=== PATIENT | male | born 1970 | race Caucasian/White ===

== ENCOUNTER 2018-06-02 14:00 | Inpatient (IN) | payer OTHER ==
[2018-06-02 14:40] VITALS: BMI 25.2
--- NOTE | 2018-06-02 17:57 | HP ---
CIWA Score - CIWA Score Nausea/Vomitin Muscle Tremors: 2 Anxiety: 3 Agitation: 2 Paroxysmal Sweats: 2 Orientation: 1-Uncertain about Date (no distress) Tacttile Disturbances: 2-Mild Itch/Numbness/Burn (both hands) Auditory Disturbances: 1-Very Mild Visual Disturbances: 0-None Headache: 0-None Present CIWA-Ar Total Score: 16 Admission ROS BHS - HPI Chief Complaint: " I need help" alcohol withdrawal symptoms Allergies/Adverse Reactions: Allergies Allergy/AdvReac Type Severity Reaction Status Date / Time shellfish derived Allergy Verified 06/02/18 17:28 tramadol Allergy Verified 06/02/18 17:28 History of Present Illness: 47 yo male with hx of alcohol dependence is here seeking detox for the first time. Reports seen at [facility] ED yesterday for asthma attack on prednisone. PMHX: sciatica, asthma, HTN, HDL. Denies psychiatric psychiatric diagnosis, reports increase drinking due to feeling depressed after the of his mother four years ago. Denies suicidal / homicidal ideation. Denies any legal troubles at this time. Denies any seizures or blackouts. Reports no significant period of sobriety. Exam Limitations: No Limitations - Ebola screening Have you traveled outside of the country in the last 21 days: No (N) Have you had contact with anyone from an Ebola affected area: No Have you been sick,other than usual withdrawal symptoms: No Do you have a fever: No - Review of Systems Constitutional: Changes in sleep, Other (anxious, weight gain +30 lbs) EENT: reports: Other (uses glasses) Respiratory: reports: No Symptoms reported Cardiac: reports: Palpitations GI: reports: Nausea, Vomiting, Indigestion : reports: No Symptoms Reported Musculoskeletal: reports: Back Pain (lower back pain with sciatica) Integumentary: reports: No Symptoms Reported Neuro: reports: Numbness (both hands), Weakness Endocrine: reports: Increased Thirst Hematology: reports: No Symptoms Reported Psychiatric: reports: Orientated x3, Anxious, Depressed (increased drinking, mother passed four years ago) Other Systems: Reviewed and Negative Patient History - Patient Medical History Hx Anemia: No Hx Asthma: Yes Hx Chronic Obstructive Pulmonary Disease (COPD): No Hx Cancer: No Hx Cardiac Disorders: No Hx Congestive Heart Failure: No Hx Hypertension: Yes Hx Hypercholesterolemia: Yes Hx Pacemaker: No HX Cerebrovascular Accident: No Hx Seizures: No Hx Dementia: No Hx Diabetes: No Hx Gastrointestinal Disorders: No Hx Liver Disease: No Hx Genitourinary Disorders: No Hx Sexually Transmitted Disorders: No Hx Renal Disease (ESRD): No Hx Thyroid Disease: No Hx Human Immunodeficiency Virus (HIV): No (last tested one month with NEG results) Hx Hepatitis C: No Hx Depression: Yes Hx Suicide Attempt: No Hx Bipolar Disorder: No Hx Schizophrenia: No - Patient Surgical History Past Surgical History: Yes Hx Orthopedic Surgery: Yes (L HIP SURGERY 2016) Anesthesia Reaction: No - PPD History Previous Implant?: No (tx with INH six years ago ) Documented Results: Positive w/o proof PPD to be Administered?: No - Smoking Cessation Smoking history: Former smoker Have you smoked in the past 12 months: No Hx Chewing Tobacco Use: No Initiated information on smoking cessation: No - Substance & Tx. History Hx Alcohol Use: Yes Hx Substance Use: Yes Substance Use Type: Alcohol Hx Substance Use Treatment: No - Substances Abused Alcohol Route: Oral Frequency: Daily Amount used: 1 PINT RUM Age of first use: 47 Date of Last Use: 06/02/18 Family Disease History - Family Disease History Family Disease History: CA: Father () Admission Physical Exam BHS - Vital Signs Vital Signs: Vital Signs - 24 hr 06/02/18 14:38 Temperature 96.2 F L Pulse Rate 82 Respiratory 18 Rate Blood Pressure 156/106 H - Physical General Appearance: Yes: Nourished, Appropriately Dressed, Disheveled, Mild Distress, Sweating, Anxious HEENTM: Yes: EOMI, Hearing grossly Normal, Normal ENT Inspection, Normocephalic , Normal Voice, [place], Pharynx Normal, Tm's normal, Other (dry mucous membranes) Respiratory: Yes: Chest Non-Tender, Lungs Clear, Normal Breath Sounds, No Respiratory Distress, No Accessory Muscle Use Neck: Yes: Within Normal Limits Breast: Yes: Breast Exam Deferred Cardiology: Yes: Regular Rhythm, Regular Rate Abdominal: Yes: Normal Bowel Sounds, Non Tender, Soft, Protuberent Genitourinary: Yes: Within Normal Limits Back: Yes: Normal Inspection Musculoskeletal: Yes: full range of Motion, Gait Steady, Pelvis Stable, Back pain Extremities: Yes: Normal Capillary Refill, Normal Inspection, Normal Range of Motion, Non-Tender Neurological: Yes: representative II-XII NML intact, Fully Oriented, Alert, Motor Strength 5/5, Depressed Affect Integumentary: Yes: Normal Color, Warm, Clammy Lymphatic: Yes: Within Normal Limits - Diagnostic (1) Asthma Current Visit: Yes Status: Chronic Qualifiers: Asthma severity: moderate Asthma persistence: unspecified Asthma complication type: with acute exacerbation Qualified Code(s): J45.901 - Unspecified asthma with (acute) exacerbation (2) Alcohol dependence with withdrawal Current Visit: Yes Status: Acute Qualifiers: Complication of substance-induced condition: uncomplicated Qualified Code(s ): F10.230 - Alcohol dependence with withdrawal, uncomplicated (3) Hypertension Current Visit: Yes Status: Chronic Qualifiers: Hypertension type: essential hypertension Qualified Code(s): I10 - Essential (primary) hypertension (4) Chronic back pain Current Visit: Yes Status: Chronic Qualifiers: Back pain location: low back pain Back pain laterality: bilateral Sciatica presence: with sciatica Cleared for Admission [facility] - Detox or Rehab [facility] Level of Care: Medically Managed Detox Regimen/Protocol: Librium [facility] Breath Alcohol Content Breath Alcohol Content: 0.125 Urine Drug Screen - Results Drug Screen Negative: Yes
[2018-06-02] MEDS ORDERED: ALBUTEROL SO4 0.083% IH SOL 2.5 MG/3 ML VIAL.NEB. NEB PRN (18:08)
[2018-06-02] MEDS ORDERED: ALBUTEROL SO4 8 GM HFA INHALER IH PRN (18:11)
[2018-06-02] MEDS ORDERED: guaiFENesin/D-METHORPHAN HB 10 ML UNIT-DOSE CUPS PO PRN (20:19)
[2018-06-02] MEDS ORDERED: MAGNESIUM CITRATE 300 ML BOTTLE PO PRN (20:19)
[2018-06-02] MEDS ORDERED: MAG HYDROX/AL HYDROX/SIMETH 30 ML UNIT-DOSE CUP PO PRN (20:19)
[2018-06-02] MEDS ORDERED: P-EPHED 60MG/TRIPROLIDI 2.5MG TABLET PO PRN (20:19)
[2018-06-02] MEDS ORDERED: MAGNESIUM HYDROX 2400MG/30ML ORAL SUSPENSION 30 ML CUP PO PRN (20:19)
[2018-06-02] MEDS ORDERED: MENTHOL/PHENOL 1 EACH UD MM PRN (20:19)
[2018-06-02] MEDS ORDERED: ACETAMINOPHEN 325 MG TABLET (FP) PO PRN (20:19)
[2018-06-02] MEDS ORDERED: chlordiazePOXIDE HCL 25 MG CAPSULE PO ONE (20:19)
[2018-06-02] MEDS ORDERED: IBUPROFEN 400 MG TABLET (FP) PO PRN (20:19)
[2018-06-02] MEDS: chlordiazePOXIDE HCL 25 MG CAPSULE PO SCH (22:13)
[2018-06-02] MEDS: predniSONE 20 MG TABLET (UD) PO SCH (22:13)
[2018-06-02] MEDS: THIAMINE HCL 100 MG TABLET (FP) PO SCH (22:14)
[2018-06-02] MEDS: BUDESONIDE/FORMETEROL FUMARATE 160/4.5 mcg INHALER IH SCH (22:15)
[2018-06-03] MEDS: MELATONIN 5 MG TABLETS PO PRN ×2 (01:31→23:19)
[2018-06-03] MEDS: chlordiazePOXIDE HCL 25 MG CAPSULE PO SCH ×4 (05:05→22:22)
[2018-06-03 10:07] LABS: HEMATOCRIT 42.4 % (35.4-49); HEMOGLOBIN 14.2 GM/dL (11.7-16.9); MCH 33.7 pg (25.7-33.7); MCHC 33.6 g/dl (32.0-35.9); MEAN CELL VOLUME 100.4 fl (80-96); MEAN PLT VOLUME 9.3 fl (7.5-11.1); PLATELET COUNT 134 K/MM3 (134-434); RBC 4.22 M/mm3 (4.00-5.60); RDW 14.2 % (11.9-15.9)
--- NOTE | 2018-06-03 10:14 | EKG ---
Test Reason : Blood Pressure : / mmHG Vent. Rate : 072 BPM Atrial Rate : 072 BPM P-R Int : 160 ms QRS Dur : 094 ms QT Int : 394 ms P-R-T Axes : 071 013 052 degrees QTc Int : 431 ms NORMAL SINUS RHYTHM NORMAL ECG NO PREVIOUS ECGS AVAILABLE Confirmed by GWEN BARR MD ([id number]) on 06/03/2018 10:14:09 AM Referred By: Confirmed By:GWEN BARR MD
[2018-06-03] MEDS: PRENATAL VITAMINS W/ FOLIC ACID TABLET (FP) PO SCH (10:15)
[2018-06-03] MEDS: ATENOLOL 50 MG TABLET (FP) PO SCH (10:15)
[2018-06-03] MEDS: predniSONE 20 MG TABLET (UD) PO SCH (10:15)
[2018-06-03] MEDS: BUDESONIDE/FORMETEROL FUMARATE 160/4.5 mcg INHALER IH SCH ×2 (10:17→22:39)
[2018-06-03 10:35] LABS: ALBUMIN 4.2 g/dl (3.4-5.0); ALK PHOS 90 U/L (45-117); ANION GAP 11 MMOL/L (8-16); BILIRUBIN,TOTAL 1.3 mg/dL (0.2-1); BLOOD UREA NITROGEN 13 mg/dL (7-18); CALCIUM 9.9 mg/dL (8.5-10.1); CHLORIDE 100 mmol/L (98-107); CO2 22 mmol/L (21-32); CREATININE 0.7 mg/dL (0.55-1.3); GLUCOSE,RANDOM 154 mg/dL (74-106); POTASSIUM 4.4 mmol/L (3.5-5.1); SGOT/AST 236 U/L (15-37); SGPT/ALT 107 U/L (13-61); SODIUM 133 mmol/L (136-145); TOT PROT 8.4 g/dl (6.4-8.2)
[2018-06-03] MEDS: chlordiazePOXIDE HCL 25 MG CAPSULE PO PRN ×2 (12:52→21:11)
[2018-06-03] MEDS: LOPERAMIDE HCL 2 MG CAPSULE PO PRN (12:54)
--- NOTE | 2018-06-03 13:05 | PN ---
[facility] CIWA - CIWA Score Nausea/Vomitin Muscle Tremors: 4-Moderate,w/Arms Extend Anxiety: 4-Mod. Anxious/Guarded Agitation: 4-Moderately Restless Paroxysmal Sweats: 3 Orientation: 0-Oriented Tacttile Disturbances: 0-None Auditory Disturbances: 0-None Visual Disturbances: 0-None Headache: 1-Very Mild CIWA-Ar Total Score: 18 BHS Progress Note (SOAP) Subjective: Tremor, chills, sweating, interrupted sleep, dizziness Objective: 06/03/18 13:00 Last Vital Signs Temp Pulse Resp BP Pulse Ox 97.9 F 90 18 145/93 06/03/18 09:48 06/03/18 11:00 06/03/18 11:00 06/03/18 09:48 Elevated b/p noted (h/o htn) Laboratory Tests 06/03/18 06/03/18 06/03/18 07:00 07:00 07:00 WBC 3.0 L RBC 4.22 Hgb 14.2 Hct 42.4 MCV 100.4 H MCH 33.7 MCHC 33.6 RDW 14.2 Plt Count 134 MPV 9.3 Sodium 133 L Potassium 4.4 Chloride 100 Carbon Dioxide 22 Anion Gap 11 BUN 13 Creatinine 0.7 Creat Clearance w eGFR > 60 Random Glucose 154 H Calcium 9.9 Total Bilirubin 1.3 H AST 236 H ALT 107 H Alkaline Phosphatase 90 Total Protein 8.4 H Albumin 4.2 RPR Titer Nonreactive Labs reviewed: elevated LFTs (AST/ALT: 236/107), serum glucose 154 Assessment: 06/03/18 13:05 Withdrawal sxs Noted with elevated LFTs and hyperglycemia Plan: Continue detox HTN: uncontrolled, continue atenolol 50mg PO daily, add norvasc 5mg PO daily, first dose today Elevated LFTs: repeat AST/ALT Hyperglycemia: random finger stick stat, repeat fasting glucose, send HbA1c, follow up on UA (not yet done)
[2018-06-03] MEDS ORDERED: amLODIPine BESYLATE 5 MG TABLET (FP) PO ONE (14:00)
[2018-06-03 15:26] LABS: URINE APPEARANCE CLEAR; URINE BILIRUBIN NEGATIVE (<2.0 mg/dL); URINE COLOR DKYELLOW; URINE GLUCOSE (UA) 3+ (NEGATIVE); URINE KETONE TRACE (NEGATIVE); URINE LEUK ESTERASE NEGATIVE (NEGATIVE); URINE NITRITE NEGATIVE (NEGATIVE); URINE PROTEIN 1+ (NEGATIVE); URINE UROBILINOGEN 4.0 E.U/dl mg/dL (0.2-1.0)
[2018-06-03 15:41] LABS: URINE MUCUS FEW
--- NOTE | 2018-06-03 18:18 | CONSULT ---
[facility] Psychiatric Consult - Data Date of interview: 06/03/18 Admission source: [facility] Identifying data: First admission to [facility] for this 47 y/o male seeking detoxification treatment on 3 (alcohol dependence). Patient is , a father of one, domiciled, unemployed and occasionally supported by relatives. Substance Abuse History: Discussed with the patient in this interview.Mr Banks confirms heavy dependence on alcohol for past seven months. Details in the current [facility] report created on admission : Smoking history: Former smoker. Have you smoked in the past 12 months: No. Hx Chewing Tobacco Use: No. Initiated information on smoking cessation: No. - Substance & Tx. History. Hx Alcohol Use: Yes. Hx Substance Use: Yes. Substance Use Type: Alcohol. Hx Substance Use Treatment: No. - Substances Abused. Alcohol. Route: Oral. Frequency: Daily. Amount used: 1 PINT RUM. Age of first use: 47. Date of Last Use: 06/02/18 Medical History: Consistent with bronchial asthma, positive PPD (INH/B6 regimen in the past), dyslipidemia, sciatica, chronic lumbar pain and recent orthosurgery (hardware in situ/left hip). Psychiatric History: Patient denies history of psychiatric hospitalizations, OPD care or suicide attempts. No prior exposure to psychotropic medications. Physical/Sexual Abuse/Trauma History: Patient denies. Additional Comment: Drug Screen is negative. Mental Status Exam - Mental Status Exam Alert and Oriented to: Time, Place, Person Cognitive Function: Good Patient Appearance: Well Groomed Mood: Hopeful, Euthymic Affect: Appropriate, Normal Range Patient Behavior: Fatigued, Appropriate, Cooperative Speech Pattern: Clear, Appropriate Voice Loudness: Normal Thought Process: Intact, Goal Oriented Thought Disorder: Not Present Hallucinations: Denies Suicidal Ideation: Denies Homicidal Ideation: Denies Insight/Judgement: Poor Sleep: Fair Appetite: Good Muscle strength/Tone: Normal Gait/Station: Other (walks with a pronounced limp) Psychiatric Findings - Problem List ([place] 1, 2,3) (1) Alcohol dependence with withdrawal Current Visit: Yes Status: Acute Qualifiers: Complication of substance-induced condition: uncomplicated Qualified Code(s ): F10.230 - Alcohol dependence with withdrawal, uncomplicated - Initial Treatment Plan Initial Treatment Plan: Psychoeducation.Sleep hygiene.Detoxification.Request for cane to facilitate ambulation : made. Support. Observation.
[2018-06-03] MEDS: hydrOXYzine PAMOATE 25 MG CAPSULE (FP) PO PRN (22:22)
[2018-06-03] MEDS: THIAMINE HCL 100 MG TABLET (FP) PO SCH (22:22)
[2018-06-04] MEDS: chlordiazePOXIDE HCL 25 MG CAPSULE PO SCH ×3 (05:27→17:36)
[2018-06-04] MEDS ORDERED: predniSONE 20 MG TABLET (UD) PO ONE (06:19)
[2018-06-04] MEDS: PRENATAL VITAMINS W/ FOLIC ACID TABLET (FP) PO SCH (10:08)
[2018-06-04] MEDS: amLODIPine BESYLATE 5 MG TABLET (FP) PO SCH (10:08)
[2018-06-04] MEDS: ATENOLOL 50 MG TABLET (FP) PO SCH (10:09)
[2018-06-04] MEDS: BUDESONIDE/FORMETEROL FUMARATE 160/4.5 mcg INHALER IH SCH ×2 (10:12→22:03)
[2018-06-04 11:01] LABS: GLUCOSE,FASTING 122 mg/dL (74-106); SGOT/AST 126 U/L (15-37); SGPT/ALT 93 U/L (13-61)
[2018-06-04] MEDS: predniSONE 20 MG TABLET (UD) PO SCH (12:25)
--- NOTE | 2018-06-04 15:20 | PN ---
S CIWA - CIWA Score Nausea/Vomitin Muscle Tremors: 2 Anxiety: 2 Agitation: 2 Paroxysmal Sweats: 1-Minimal Palms Moist Orientation: 0-Oriented Tacttile Disturbances: 1-Very Mild Itch/Numbness Auditory Disturbances: 1-Very Mild Visual Disturbances: 1-Very Mild Sensitivity Headache: 2-Mild CIWA-Ar Total Score: 14 S Progress Note (SOAP) Subjective: alert,irritable,anxious,interrupted sleep Objective: 06/04/18 15:16 Vital Signs Temperature 97.6 F 06/04/18 11:13 Pulse Rate 88 06/04/18 11:13 Respiratory Rate 20 06/04/18 11:13 Blood Pressure 110/67 06/04/18 11:13 O2 Sat by Pulse Oximetry (%) 06/04/18 15:16 Laboratory Last Values WBC 3.0 K/mm3 (4.0-10.0) L 06/03/18 07:00 RBC 4.22 M/mm3 (4.00-5.60) 06/03/18 07:00 Hgb 14.2 GM/dL (11.7-16.9) 06/03/18 07:00 Hct 42.4 % (35.4-49) 06/03/18 07:00 MCV 100.4 fl (80-96) H 06/03/18 07:00 MCH 33.7 pg (25.7-33.7) 06/03/18 07:00 MCHC 33.6 g/dl (32.0-35.9) 06/03/18 07:00 RDW 14.2 % (11.9-15.9) 06/03/18 07:00 Plt Count 134 K/MM3 (134-434) 06/03/18 07:00 MPV 9.3 fl (7.5-11.1) 06/03/18 07:00 Sodium 133 mmol/L (136-145) L 06/03/18 07:00 Potassium 4.4 mmol/L (3.5-5.1) 06/03/18 07:00 Chloride 100 mmol/L (98-107) 06/03/18 07:00 Carbon Dioxide 22 mmol/L (21-32) 06/03/18 07:00 Anion Gap 11 MMOL/L (8-16) 06/03/18 07:00 BUN 13 mg/dL (7-18) 06/03/18 07:00 Creatinine 0.7 mg/dL (0.55-1.3) 06/03/18 07:00 Creat Clearance w eGFR > 60 (>60) 06/03/18 07:00 POC Glucometer 190 UNITS (80-120) 06/03/18 16:30 Random Glucose 154 mg/dL (74-106) H 06/03/18 07:00 Fasting Glucose 122 mg/dL (74-106) H 06/04/18 08:00 Hemoglobin A1c % 6.1 % (4.2-6.3) 06/04/18 08:00 Calcium 9.9 mg/dL (8.5-10.1) 06/03/18 07:00 Total Bilirubin 1.3 mg/dL (0.2-1) H 06/03/18 07:00 AST 126 U/L (15-37) H 06/04/18 08:00 ALT 93 U/L (13-61) H 06/04/18 08:00 Alkaline Phosphatase 90 U/L (45-117) 06/03/18 07:00 Total Protein 8.4 g/dl (6.4-8.2) H 06/03/18 07:00 Albumin 4.2 g/dl (3.4-5.0) 06/03/18 07:00 Urine Color Dkyellow 06/03/18 13:35 Urine Appearance Clear 06/03/18 13:35 Urine pH 6.0 (5.0-8.0) 06/03/18 13:35 Ur Specific [place] 1.022 (1.010-1.035) 06/03/18 13:35 Urine Protein 1+ (NEGATIVE) H 06/03/18 13:35 Urine Glucose (UA) 3+ (NEGATIVE) H 06/03/18 13:35 Urine Ketones Trace (NEGATIVE) H 06/03/18 13:35 Urine Blood Negative (NEGATIVE) 06/03/18 13:35 Urine Nitrite Negative (NEGATIVE) 06/03/18 13:35 Urine Bilirubin Negative (<2.0 mg/dL) 06/03/18 13:35 Urine Urobilinogen 4.0 e.u/dl mg/dL (0.2-1.0) 06/03/18 13:35 Ur Leukocyte Esterase Negative (NEGATIVE) 06/03/18 13:35 Urine WBC (Auto) <1 /hpf (3-5) 06/03/18 13:35 Urine RBC (Auto) None /hpf (0-3) 06/03/18 13:35 Urine Mucus Few 06/03/18 13:35 RPR Titer Nonreactive (NONREACTIVE) 06/03/18 07:00 Assessment: 06/04/18 15:19 withdrawal symptom Plan: continue detox,bgm monitoring
[2018-06-04] MEDS: chlordiazePOXIDE HCL 25 MG CAPSULE PO PRN (20:11)
[2018-06-04] MEDS: THIAMINE HCL 100 MG TABLET (FP) PO SCH (22:04)
[2018-06-04] MEDS: chlordiazePOXIDE 5 MG CAPSULE PO SCH (22:04)
[2018-06-04] MEDS: MELATONIN 5 MG TABLETS PO PRN (22:04)
[2018-06-05] MEDS: hydrOXYzine PAMOATE 25 MG CAPSULE (FP) PO PRN (01:30)
[2018-06-05] MEDS: chlordiazePOXIDE 5 MG CAPSULE PO SCH ×3 (05:42→17:54)
[2018-06-05] MEDS: amLODIPine BESYLATE 5 MG TABLET (FP) PO SCH (10:13)
[2018-06-05] MEDS: BUDESONIDE/FORMETEROL FUMARATE 160/4.5 mcg INHALER IH SCH ×2 (10:14→22:04)
[2018-06-05] MEDS: PRENATAL VITAMINS W/ FOLIC ACID TABLET (FP) PO SCH (10:14)
[2018-06-05] MEDS: ATENOLOL 50 MG TABLET (FP) PO SCH (10:14)
[2018-06-05] MEDS: LOPERAMIDE HCL 2 MG CAPSULE PO PRN (13:45)
[2018-06-05] MEDS ORDERED: metFORMIN HCL 500 MG TABLET (FP) PO ONE (15:44)
--- NOTE | 2018-06-05 15:52 | PN ---
BHS Progress Note (SOAP) Subjective: Tremor, sweating, interrupted sleep Objective: 06/05/18 15:46 Last Vital Signs Temp Pulse Resp BP Pulse Ox 97.4 F L 80 20 122/83 06/05/18 14:10 06/05/18 14:10 06/05/18 14:10 06/05/18 14:10 Laboratory Tests 06/03/18 06/03/18 06/03/18 07:00 07:00 07:00 WBC 3.0 L RBC 4.22 Hgb 14.2 Hct 42.4 MCV 100.4 H MCH 33.7 MCHC 33.6 RDW 14.2 Plt Count 134 MPV 9.3 Sodium 133 L Potassium 4.4 Chloride 100 Carbon Dioxide 22 Anion Gap 11 BUN 13 Creatinine 0.7 Creat Clearance w eGFR > 60 POC Glucometer Random Glucose 154 H Fasting Glucose Hemoglobin A1c % Calcium 9.9 Total Bilirubin 1.3 H AST 236 H ALT 107 H Alkaline Phosphatase 90 Total Protein 8.4 H Albumin 4.2 Urine Color Urine Appearance Urine pH Ur Specific [place] Urine Protein Urine Glucose (UA) Urine Ketones Urine Blood Urine Nitrite Urine Bilirubin Urine Urobilinogen Ur Leukocyte Esterase Urine WBC (Auto) Urine RBC (Auto) Urine Mucus RPR Titer Nonreactive 06/03/18 06/03/18 06/04/18 13:35 16:30 08:00 WBC RBC Hgb Hct MCV MCH MCHC RDW Plt Count MPV Sodium Potassium Chloride Carbon Dioxide Anion Gap BUN Creatinine Creat Clearance w eGFR POC Glucometer 190 Random Glucose Fasting Glucose 122 H Hemoglobin A1c % Calcium Total Bilirubin AST 126 H ALT 93 H Alkaline Phosphatase Total Protein Albumin Urine Color Dkyellow Urine Appearance Clear Urine pH 6.0 Ur Specific [place] 1.022 Urine Protein 1+ H Urine Glucose (UA) 3+ H Urine Ketones Trace H Urine Blood Negative Urine Nitrite Negative Urine Bilirubin Negative Urine Urobilinogen 4.0 e.u/dl Ur Leukocyte Esterase Negative Urine WBC (Auto) <1 Urine RBC (Auto) None Urine Mucus Few RPR Titer 06/04/18 08:00 WBC RBC Hgb Hct MCV MCH MCHC RDW Plt Count MPV Sodium Potassium Chloride Carbon Dioxide Anion Gap BUN Creatinine Creat Clearance w eGFR POC Glucometer Random Glucose Fasting Glucose Hemoglobin A1c % 6.1 Calcium Total Bilirubin AST ALT Alkaline Phosphatase Total Protein Albumin Urine Color Urine Appearance Urine pH Ur Specific [place] Urine Protein Urine Glucose (UA) Urine Ketones Urine Blood Urine Nitrite Urine Bilirubin Urine Urobilinogen Ur Leukocyte Esterase Urine WBC (Auto) Urine RBC (Auto) Urine Mucus RPR Titer Labs reviewed: A1c 6.1%, hyperglycemia, abnormal UA Assessment: 06/05/18 15:46 Withdrawal sxs Noted with prediabetes, hyperglycemia and abnormal UA Plan: Continue detox Prediabetes: decrease starchy food in diet and avoid sugary intake, encouraged to drink water instead of juice Hyperglycemia secondary to prediabetes: finger stick glucose ac meal, start sliding scale insulin with coverage, start metformin 500mg PO daily, first dose today, follow up with PCP post discharge for monitoring/management Abnormal UA: encouraged PO water intake, repeat UA
[2018-06-05] MEDS: INSULIN SLIDING SCALE (NOVOLOG) 1 VIAL SQ SCH (16:30)
[2018-06-05] MEDS ORDERED: INSULIN (NOVOLOG) ASPART 100 UNITS/ML 10ML VIAL ONE (17:03)
[2018-06-05 18:43] LABS: URINE APPEARANCE CLEAR; URINE BILIRUBIN NEGATIVE (<2.0 mg/dL); URINE COLOR STRAW; URINE GLUCOSE (UA) 1+ (NEGATIVE); URINE KETONE NEGATIVE (NEGATIVE); URINE LEUK ESTERASE NEGATIVE (NEGATIVE); URINE NITRITE NEGATIVE (NEGATIVE); URINE PROTEIN NEGATIVE (NEGATIVE); URINE UROBILINOGEN NEGATIVE mg/dL (0.2-1.0)
[2018-06-05] MEDS: THIAMINE HCL 100 MG TABLET (FP) PO SCH (22:04)
[2018-06-05] MEDS: chlordiazePOXIDE HCL 10 MG CAPSULE PO SCH (22:04)
[2018-06-05] MEDS: MELATONIN 5 MG TABLETS PO PRN (22:04)
[2018-06-06] MEDS: hydrOXYzine PAMOATE 25 MG CAPSULE (FP) PO PRN (03:05)
[2018-06-06] MEDS: chlordiazePOXIDE HCL 10 MG CAPSULE PO SCH ×2 (05:30→10:00)
[2018-06-06] MEDS ORDERED: metFORMIN HCL 500 MG TABLET (FP) PO SCH (07:00)
[2018-06-06] MEDS: INSULIN SLIDING SCALE (NOVOLOG) 1 VIAL SQ SCH (07:15)
--- NOTE | 2018-06-06 09:02 | DS ---
[facility] Detox Discharge Summary Admission Date: 06/02/18 Discharge Date: 06/06/18 - History Present History: Alcohol Dependence Additional Comments: Patient medically stable. Patient to follow up with primary care provider in a week. Pertinent Past History: Vital Signs Temperature 97 F L 06/06/18 09:13 Pulse Rate 99 H 06/06/18 09:13 Respiratory Rate 16 06/06/18 09:13 Blood Pressure 119/79 06/06/18 09:13 O2 Sat by Pulse Oximetry (%) Laboratory Last Values WBC 3.0 K/mm3 (4.0-10.0) L 06/03/18 07:00 RBC 4.22 M/mm3 (4.00-5.60) 06/03/18 07:00 Hgb 14.2 GM/dL (11.7-16.9) 06/03/18 07:00 Hct 42.4 % (35.4-49) 06/03/18 07:00 MCV 100.4 fl (80-96) H 06/03/18 07:00 MCH 33.7 pg (25.7-33.7) 06/03/18 07:00 MCHC 33.6 g/dl (32.0-35.9) 06/03/18 07:00 RDW 14.2 % (11.9-15.9) 06/03/18 07:00 Plt Count 134 K/MM3 (134-434) 06/03/18 07:00 MPV 9.3 fl (7.5-11.1) 06/03/18 07:00 Sodium 133 mmol/L (136-145) L 06/03/18 07:00 Potassium 4.4 mmol/L (3.5-5.1) 06/03/18 07:00 Chloride 100 mmol/L (98-107) 06/03/18 07:00 Carbon Dioxide 22 mmol/L (21-32) 06/03/18 07:00 Anion Gap 11 MMOL/L (8-16) 06/03/18 07:00 BUN 13 mg/dL (7-18) 06/03/18 07:00 Creatinine 0.7 mg/dL (0.55-1.3) 06/03/18 07:00 Creat Clearance w eGFR > 60 (>60) 06/03/18 07:00 POC Glucometer 169 UNITS (80-120) 06/06/18 05:30 Random Glucose 154 mg/dL (74-106) H 06/03/18 07:00 Fasting Glucose 122 mg/dL (74-106) H 06/04/18 08:00 Hemoglobin A1c % 6.1 % (4.2-6.3) 06/04/18 08:00 Calcium 9.9 mg/dL (8.5-10.1) 06/03/18 07:00 Total Bilirubin 1.3 mg/dL (0.2-1) H 06/03/18 07:00 AST 126 U/L (15-37) H 06/04/18 08:00 ALT 93 U/L (13-61) H 06/04/18 08:00 Alkaline Phosphatase 90 U/L (45-117) 06/03/18 07:00 Total Protein 8.4 g/dl (6.4-8.2) H 06/03/18 07:00 Albumin 4.2 g/dl (3.4-5.0) 06/03/18 07:00 Urine Color Straw 06/05/18 16:43 Urine Appearance Clear 06/05/18 16:43 Urine pH 6.0 (5.0-8.0) 06/05/18 16:43 Ur Specific [place] 1.010 (1.010-1.035) 06/05/18 16:43 Urine Protein Negative (NEGATIVE) 06/05/18 16:43 Urine Glucose (UA) 1+ (NEGATIVE) H 06/05/18 16:43 Urine Ketones Negative (NEGATIVE) 06/05/18 16:43 Urine Blood Negative (NEGATIVE) 06/05/18 16:43 Urine Nitrite Negative (NEGATIVE) 06/05/18 16:43 Urine Bilirubin Negative (<2.0 mg/dL) 06/05/18 16:43 Urine Urobilinogen Negative mg/dL (0.2-1.0) 06/05/18 16:43 Ur Leukocyte Esterase Negative (NEGATIVE) 06/05/18 16:43 Urine WBC (Auto) <1 /hpf (3-5) 06/03/18 13:35 Urine RBC (Auto) None /hpf (0-3) 06/03/18 13:35 Urine Mucus Few 06/03/18 13:35 RPR Titer Nonreactive (NONREACTIVE) 06/03/18 07:00 - Physical Exam Results Vital Signs: Vital Signs Temperature 96.8 F L 06/06/18 06:08 Pulse Rate 68 06/06/18 06:08 Respiratory Rate 18 06/06/18 06:08 Blood Pressure 120/78 06/06/18 06:08 O2 Sat by Pulse Oximetry (%) - Treatment Hospital Course: Detox Protocol Followed, Detoxed Safely, Responded well, Discharged Condition Good, Rehab Referral Accepted - Medication Discharge Medications: Ambulatory Orders Atenolol [Tenormin] 50 mg PO DAILY 06/02/18 Fluticasone/Salmeterol [Advair Hfa 45-21 Mcg Inhaler] 12 gm IH DAILY 06/02/18 Prednisone [Deltasone] 40 mg PO DAILY 06/02/18 Albuterol Sulfate Inhaler - [Ventolin HFA Inhaler -] 2 puff IH Q4H PRN #1 inhaler 06/06/18 Amlodipine Besylate [Norvasc -] 5 mg PO ONCE #30 tablet 06/06/18 Atenolol [Tenormin -] 50 mg PO DAILY #30 tablet 06/06/18 Budesonide/Formeterol Fumarate [SYMBICORT 160/4.5mcg -] 2 puff IH BID #1 inhaler 06/06/18 metFORMIN HCL [Glucophage -] 500 mg PO ONCE #60 tablet 06/06/18 - Diagnosis (1) Asthma Status: Chronic Qualifiers: Asthma severity: moderate Asthma persistence: unspecified Asthma complication type: with acute exacerbation Qualified Code(s): J45.901 - Unspecified asthma with (acute) exacerbation (2) Alcohol dependence with withdrawal Status: Acute Qualifiers: Complication of substance-induced condition: uncomplicated Qualified Code(s ): F10.230 - Alcohol dependence with withdrawal, uncomplicated (3) Hypertension Status: Chronic Qualifiers: Hypertension type: essential hypertension Qualified Code(s): I10 - Essential (primary) hypertension (4) Chronic back pain Status: Chronic Qualifiers: Back pain location: low back pain Back pain laterality: bilateral Sciatica presence: with sciatica (5) Hyperglycemia Status: Acute (6) Prediabetes Status: Acute - AMA Did Patient Leave Against Medical Advice: No
[2018-06-06 09:14] VITALS: BP 119/79; PULSE 99; TEMP 97
[2018-06-06] MEDS: amLODIPine BESYLATE 5 MG TABLET (FP) PO SCH (09:32)
[2018-06-06] MEDS: PRENATAL VITAMINS W/ FOLIC ACID TABLET (FP) PO SCH (09:32)
[2018-06-06] MEDS: BUDESONIDE/FORMETEROL FUMARATE 160/4.5 mcg INHALER IH SCH (09:32)
[2018-06-06] MEDS: ATENOLOL 50 MG TABLET (FP) PO SCH (09:32)
== END 2018-06-06 09:50 | disposition home or self-care (01) | DRG 775 ==
LOC: YASAS 14:00 → Y3N 17:47
PROC: HZ2ZZZZ Detoxification Services for Substance Abuse Treatment (ICD-10-PCS; principal; 2018-06-02)
DX: F10.230 Alcohol dependence with withdrawal, uncomplicated (principal); F32.9 Major depressive disorder, single episode, unspecified; I10 Essential (primary) hypertension; J45.901 Unspecified asthma with (acute) exacerbation; M54.42 Lumbago with sciatica, left side; M54.41 Lumbago with sciatica, right side; G89.29 Other chronic pain; R73.9 Hyperglycemia, unspecified; R73.03 Prediabetes; R82.90 Unspecified abnormal findings in urine; R76.11 Nonspecific reaction to tuberculin skin test without active tuberculosis; E78.5 Hyperlipidemia, unspecified; R94.5 Abnormal results of liver function studies; Z87.891 Personal history of nicotine dependence; Z91.013 Allergy to seafood
CPT/HCPCS: 36415; 80053; 81003; 81015; 82947; 82962; 83036; 84450; 84460; 85027; 86593; 93005; 93010; 94640